=== PATIENT | male | born 1965 | race African-American/Black ===

== ENCOUNTER 2020-07-17 15:33 | Emergency (ER) | payer OTHER, SELFPAY ==
[~2020-07-17] VITALS: Ht 172.7 cm; Wt 77.0 kg
[2020-07-17 19:34] LABS: HEMATOCRIT. 45.5 % (42.0-52.0); HEMOGLOBIN. 15.1 g/dL (14.0-18.0); MEAN CORPUSCULAR HEMOGLOBIN 26.2 pg (28.0-32.0); MEAN CORPUSCULAR VOLUME 78.8 fL (80.0-94.0); MEAN PLATELET VOLUME 8.8 fl (7.4-10.4); PLATELET 142 x1000/uL (130-400); RED BLOOD CELL COUNT 5.78 mill/uL (4.7-6.1); RED CELL DISTRIBUTION WIDTH 15.3 % (11.6-14.6)
[2020-07-17 19:39] LABS: CHLORIDE 99 mEq/L (98-107)
[2020-07-17 19:53] LABS: CLARITY URINE CLEAR (CLEAR); COLOR URINE YELLOW (YELLOW); KETONES URINE TRACE (NEGATIVE); LEUKOCYTE ESTERASE URINE TRACE (NEGATIVE); NITRITE URINE NEGATIVE (NEGATIVE); OCCULT BLOOD URINE NEGATIVE (NEGATIVE); PROTEIN URINE 2+ (NEGATIVE)
[2020-07-17 20:06] VITALS: BP 117/63
[2020-07-17 20:20] LABS: PLATELET ESTIMATE NORMAL
== END 2020-07-17 21:34 | disposition home or self-care (01) ==
LOC: ER 15:33
DX: J18.9 Pneumonia, unspecified organism (principal); Z20.828 Contact with and (suspected) exposure to other viral communicable diseases
CPT/HCPCS: 36415; 71045; 80053; 81003; 84484; 85025; 93005; 99285; C9803; U0003